=== PATIENT | female | born 1995 | race Two or more races ===

== ENCOUNTER → 2017-01-09 | Outpatient (REF) | payer OTHER | LOC: M SFHCLERA 17:31 | PROVIDERS: ATTEND Nurse Practitioner Family | DX: J02.9 Acute pharyngitis, unspecified (principal) ==

== ENCOUNTER → 2018-09-22 | Outpatient (REF) | payer OTHER ==
[2018-09-22 21:01] LABS: ALBUMIN 3.8 GM/DL (3.2-5.2); ALT/SGPT 17 U/L (12-78); BILIRUBIN,TOTAL 0.1 MG/DL (0.2-1.0); BLOOD UREA NITROGEN 12 MG/DL (7-18); CALCIUM LEVEL 9.3 MG/DL (8.5-10.1); CARBON DIOXIDE LEVEL 31 MEQ/L (21-32); CHLORIDE LEVEL 105 MEQ/L (98-107); CREATININE FOR GFR 0.76 MG/DL (0.55-1.30); GLUCOSE, FASTING 105 MG/DL (70-100); POTASSIUM SERUM 4.1 MEQ/L (3.5-5.1); SODIUM LEVEL 142 MEQ/L (136-145); TOTAL PROTEIN 7.4 GM/DL (6.4-8.2)
[2018-09-22 23:29] LABS: CHLAMYDIA DNA AMPLIFICATION NEGATIVE (NEGATIVE); GC DNA AMPLIFICATION NEGATIVE (NEGATIVE)
[2018-09-25 14:07] LABS: HSV TYPE I IgG SPECIFIC <0.91 index (0.00-0.90); HSV TYPE I IgM AB <1:10 titer (<1:10); HSV TYPE II IgG SPECIFIC <0.91 index (0.00-0.90); HSV TYPE II IgM ABY <1:10 titer (<1:10)
== END ==
LOC: M SFHCLERA 19:44
PROVIDERS: ATTEND Nurse Practitioner Family
DX: N89.8 Other specified noninflammatory disorders of vagina (principal); N94.10 Unspecified dyspareunia

== ENCOUNTER → 2022-01-28 | Outpatient (CLI) | payer OTHER ==
[2022-01-28 15:35] LABS: HEMATOCRIT 37.3 % (36.0-47.0); HEMOGLOBIN 12.1 g/dl (12.0-15.5); MEAN CORPUSCULAR HEMOGLOBIN 29.8 pg (27.0-33.0); MEAN CORPUSCULAR HGB CONC 32.4 g/dl (32.0-36.5); MEAN CORPUSCULAR VOLUME 91.9 fl (80.0-96.0); PLATELET COUNT, AUTOMATED 271 10^3/uL (150-450); RED BLOOD COUNT 4.06 10^6/uL (4.00-5.40); WHITE BLOOD COUNT 12.9 10^3/uL (4.0-10.0)
== END ==
LOC: M PLALAB 12:15
PROVIDERS: ATTEND Advanced Practice Midwife
DX: Z34.02 Encounter for supervision of normal first pregnancy, second trimester (principal)

== ENCOUNTER → 2022-04-03 | Outpatient (REF) | payer OTHER | LOC: M SFHCWAGY 12:53 | PROVIDERS: ATTEND Obstetrics & Gynecology | DX: Z34.93 Encounter for supervision of normal pregnancy, unspecified, third trimester (principal) ==

== ENCOUNTER 2022-04-29 12:28 | Inpatient (IN) | payer OTHER ==
[2022-04-29] VITALS (16 sets, daily range): BP systolic 111–131; BP diastolic 59–77
[~2022-04-29] VITALS: Ht 162.6 cm; Wt 104.9 kg
[2022-04-29] MEDS ORDERED: PRENTAB9 PO (13:11)
[2022-04-29] MEDS ORDERED: NEXI10GR PO (13:11)
[2022-04-29] MEDS ORDERED: HOME MED LIST COMPLETE! XX SCH (13:15)
[2022-04-29] MEDS ORDERED: LACTATED RINGER'S 1000 ML IV STA (13:24)
[2022-04-29] MEDS ORDERED: OXYTOCIN DRIP 30 UNITS in IV 1 EA IV PRN (13:25)
[2022-04-29] MEDS ORDERED: CARBOPROST TROMETHAMINE 250 MCG/ML AMP IM PRN (13:25)
[2022-04-29] MEDS ORDERED: METHYLERGONOVINE MALEATE 0.2MG/ML 1ML VIAL IM PRN (13:25)
[2022-04-29] MEDS ORDERED: TRANEXAMIC ACID INJection 1,000 MG in NS 100 ML IV PRN (13:25)
[2022-04-29] MEDS ORDERED: OXYTOCIN INJ 10UNITS/ML 1ML VIAL IM PRN (13:25)
[2022-04-29] MEDS ORDERED: LIDOCAINE 1% MDV 20ML VIAL INFIL PRN (13:25)
[2022-04-29] MEDS ORDERED: miSOPROStol 50MCG 1/2 TABLET PO ONE (14:10)
[2022-04-29 14:23] LABS: HEMATOCRIT 40.9 % (36.0-47.0); HEMOGLOBIN 13.3 g/dl (12.0-15.5); MEAN CORPUSCULAR HEMOGLOBIN 27.9 pg (27.0-33.0); MEAN CORPUSCULAR HGB CONC 32.5 g/dl (32.0-36.5); MEAN CORPUSCULAR VOLUME 85.7 fl (80.0-96.0); PLATELET COUNT, AUTOMATED 327 10^3/uL (150-450); RED BLOOD COUNT 4.77 10^6/uL (4.00-5.40); WHITE BLOOD COUNT 13.4 10^3/uL (4.0-10.0)
[2022-04-29] MEDS ORDERED: OXYTOCIN DRIP 30 UNITS in IV 1 EA IV SCH (18:00)
[2022-04-29] MEDS: LR 1,000 ML IV SCH (18:37)
[2022-04-30] VITALS (29 sets, daily range): BP systolic 97–130; BP diastolic 52–84
[2022-04-30] MEDS ORDERED: diphenhydrAMINE 50MG/ML VIAL IV PRN (01:40)
[2022-04-30] MEDS ORDERED: ONDANSETRON 4MG 2ML VIAL IV PRN (01:40)
[2022-04-30] MEDS ORDERED: LR 500 ML IV PRN (01:40)
[2022-04-30] MEDS ORDERED: EPIDURAL/PCA KEYS XX PRN (01:40)
[2022-04-30] MEDS ORDERED: FENTANYL/ROPIVACAINE/NACL BAG 100 ML EPIDURAL SCH (01:40)
[2022-04-30] MEDS ORDERED: NALOXONE INJ 0.4MG/1ML VIAL IV PRN (01:40)
[2022-04-30] MEDS ORDERED: ePHEDrine SULFATE 25 MG/5 ML(5MG/ML) SYRINGE IVP PRN (01:40)
[2022-04-30] MEDS ORDERED: FENTANYL 2MCG/ML ROPIVACAINE 0.2% IN 0.9% NACL 100ML IVBAG As Ordered ONE (01:42)
[2022-04-30] MEDS: LR 1,000 ML IV SCH ×2 (02:15→06:52)
[2022-04-30] MEDS ORDERED: DOCUSATE SODIUM 100MG CAPSULE PO PRN (08:10)
[2022-04-30] MEDS ORDERED: DIBUCAINE 1% OINTMENT 30GM TOP PRN (08:10)
[2022-04-30] MEDS ORDERED: ACETAMINOPHEN TAB 650MG DOSE (2X325MG) PO PRN (08:10)
[2022-04-30] MEDS ORDERED: IBUPROFEN 800 MG TAB PO PRN (08:10)
[2022-04-30] MEDS ORDERED: IBUPROFEN 600MG TAB PO PRN (08:10)
[2022-04-30] MEDS ORDERED: ANUSOL HC CREAM 30GM TOP PRN (08:10)
[2022-04-30] MEDS ORDERED: MOM 30ML SUSPENSION UDC PO PRN (08:10)
[2022-04-30] MEDS ORDERED: RHOGAM 300MCG (1500IU) INJ IM SCH (08:10)
[2022-04-30] MEDS: PRENATAL VITAMINS CHEWABLE TABLET PO SCH (09:50)
[2022-05-01 06:00] VITALS: BP 113/66
[2022-05-01] MEDS: PRENATAL VITAMINS CHEWABLE TABLET PO SCH (07:50)
[2022-05-01] MEDS: ACETAMINOPHEN 500 MG TAB PO PRN ×2 (07:50→20:39)
[2022-05-01 18:00] VITALS: BP 123/71
[2022-05-02 06:00] VITALS: BP 122/78
[2022-05-02] MEDS: PRENATAL VITAMINS CHEWABLE TABLET PO SCH (08:30)
[2022-05-02] MEDS ORDERED: MEASLES,MUMPS,RUBELLA VACCINE INJ (MMR-II) SC.IMMUN ONE (09:00)
== END 2022-05-02 15:05 | disposition home or self-care (01) | DRG 560 ==
LOC: M LDI 12:28 → M OBS 04-30 09:26
PROVIDERS: ADMIT Advanced Practice Midwife; ATTEND Advanced Practice Midwife
PROC: 3E0P7GC Introduction of Other Therapeutic Substance into Female Reproductive, Via Natural or Artificial Opening (ICD-10-PCS; 2022-04-29)
PROC: 10E0XZZ Delivery of Products of Conception, External Approach (ICD-10-PCS; principal; 2022-04-30)
PROC: 0HQ9XZZ Repair Perineum Skin, External Approach (ICD-10-PCS; 2022-04-30)
DX: O48.0 Post-term pregnancy (principal); E66.3 Overweight; Z3A.40 40 weeks gestation of pregnancy; O70.0 First degree perineal laceration during delivery; Z37.0 Single live birth; Z87.891 Personal history of nicotine dependence; Z86.16 Personal history of COVID-19; O99.214 Obesity complicating childbirth

== ENCOUNTER → 2022-11-05 | Outpatient (CLI) | payer OTHER, SELFPAY ==
[~2022-11-05] MED LIST: NEXI10GR PO; PRENTAB9 PO
[2022-11-05 16:43] LABS: HIV 1&2 SCREEN NEGATIVE (NEGATIVE)
[2022-11-05 16:51] LABS: HEPATITIS B CORE ANTIBODY IGM NEGATIVE (NEGATIVE); HEPATITIS C VIRUS ABY INDEX 0.14 INDEX (<0.8)
[2022-11-05 19:12] LABS: GC DNA AMPLIFICATION NEGATIVE (NEGATIVE)
[2022-11-06 00:14] LABS: GC DNA AMPLIFICATION NEGATIVE (NEGATIVE)
== END ==
LOC: M PLALAB 12:34
PROVIDERS: ATTEND Nurse Practitioner Family
DX: Z11.3 Encounter for screening for infections with a predominantly sexual mode of transmission (principal); N73.9 Female pelvic inflammatory disease, unspecified
CPT/HCPCS: 36415; 86705; 86780; 86803; 87070; 87340; 87389; 87661; 87810; 87850; G0123

== ENCOUNTER → 2024-08-31 | Outpatient (CLI) | payer OTHER ==
[2024-08-31 16:48] LABS: HIV 1&2 SCREEN NEGATIVE (NEGATIVE)
[2024-08-31 16:56] LABS: HEPATITIS C VIRUS ABY INDEX 0.08 INDEX (<0.8)
[2024-08-31 18:41] LABS: Trichomonas vaginalis (AMP) NOT DETECTED (NEGATIVE)
[2024-08-31 19:05] LABS: GC DNA AMPLIFICATION NEGATIVE (NEGATIVE)
== END ==
LOC: M PLALAB 14:18
PROVIDERS: ATTEND Nurse Practitioner Family
DX: Z11.3 Encounter for screening for infections with a predominantly sexual mode of transmission (principal)